=== PATIENT | female | born 1960 | race Caucasian/White ===

== ENCOUNTER 2016-12-24 07:18 | Day surgery (SDC) | payer OTHER ==
[~2016-12-24] VITALS: Ht 170.2 cm; Wt 57.3 kg
[2016-12-24 07:45] VITALS: BP 145/88; PULSE 75; RESP 20; TEMP 97.4; O2SAT 97
[2016-12-24] MEDS ORDERED: METO25TA3 PO (07:52)
[2016-12-24] MEDS ORDERED: LEVO125T4 PO (07:52)
[2016-12-24] MEDS ORDERED: SODIUM CHLOR 0.9% 1000 ML INJ 1,000 ML IV SCH (09:30)
[2016-12-24 10:05] VITALS: BP 130/73; PULSE 56; RESP 20; TEMP 97.5; O2SAT 98
--- NOTE | 2016-12-24 10:20 | RADRPT ---
EXAM DATE/TIME: 12/24/2016 09:41 [place] COMPARISON: No previous studies available for comparison. INDICATIONS : Patient with a history of malignant neoplasm of nervous system. MEDICAL HISTORY : Breast cancer SURGICAL HISTORY : Rt. mastectomy ENCOUNTER: Initial ACUITY: 1 month PAIN SCORE: 0/10 LUMBAR PUNCTURE TIME: 0942 hours FLUORO TIME: 0.68 minutes 0 ACCESS LEVEL: L3-4 OPENING PRESSURE: 15 cm of water CLOSING PRESSURE: Not requested. FLUID: 9 cc of clear CSF was collected and sent to the laboratory for analysis. PROCEDURE : 1. Fluoroscopic guided lumbar puncture. 2. Recording of opening pressure. The risks, benefits and alternatives to the procedure were explained and verbal and written consent w as obtained. The site was prepped in sterile fashion. Full sterile technique was used, including ca p, mask, sterile gloves and gown and a large sterile sheet. Hand hygiene and 2% chlorhexidine and/or betadine/alcohol prep was utilized per protocol for cutaneous antisepsis. The skin and subcutaneous tissues were infiltrated with local anesthetic solution. With fluoroscopic guidance the lumbar thecal sac was punctured at the above level described above and the opening pressure was recorded. The above described fluid was removed without difficulty. The patient tolerated the procedure well and there were no complications. CONCLUSION: Uncomplicated fluoroscopically guided lumbar puncture with pressures as above. Kenrick Snyder MD on December 24, 2016 at 10:18 Board Certified Radiologist. This report was verified electronically.
--- NOTE | 2016-12-24 13:38 | PD.RAD ---
Post Procedure Progress Note Pre Procedure Diagnosis: (1) Breast CA Post Procedure Diagnosis: (1) Breast CA Procedure Date: Dec 24, 2016 Supervising Radiologist: Kenrick Snyder Proceduralist/Assist: Shell Terrell, RT(R), Yusra Pena RT(R)() Anesthesia: Local Plan of Activity Patient to Unit: ROPU Patient Condition: Good See PACS Report for procedural detail/treatment Spinal Procedure Lumbar Puncture L3-L4 Fluid Removal (CCs): 9 Fluid Description: Clear Puncture Time: 09:42 Findings: opening pressure 15cm Kenrick Snyder MD Dec 24, 2016 13:38
[2017-01-13] MEDS ORDERED: IBUP-988 PO (09:36)
[2017-01-13] MEDS ORDERED: EXEM25TA (09:36)
[2017-01-13] MEDS ORDERED: PEPT262S PO (09:36)
== END 2016-12-24 12:00 | disposition home or self-care (01) ==
LOC: HROP 07:18 → HRIP 07:27 → HROP 12:00
PROVIDERS: ATTEND Internal Medicine Hematology & Oncology
DX: C79.49 Secondary malignant neoplasm of other parts of nervous system (principal); Z85.3 Personal history of malignant neoplasm of breast
CPT/HCPCS: 62270; 77003; 82945; 84157; 87070; 87205; J7030